=== PATIENT | male | born 1980 | race Caucasian/White ===

== ENCOUNTER 2021-08-15 15:58 | Emergency (ER) | payer BC, SELFPAY ==
--- NOTE | ~2021-08-15 | XR_ITS ---
XR shoulder RT min 2V 08/15/2021 16:15 Indication: Right shoulder pain Procedure: 4 views right shoulder Comparison: No prior studies for comparison. Findings: No fracture, subluxation or dislocation no significant soft tissue abnormality. Surrounding osseous structures and soft tissues are unremarkable. Impression: 1: No acute bone or joint abnormality. Reviewed, dictated and finalized at location A. SIFIER OPERATOR Impression: 1: No acute bone or joint abnormality.
--- NOTE | 2021-08-15 16:01 | ED.EXTPRO ---
HPI - Extremity Problem General Chief complaint: Extremity Injury, Upper Stated complaint: right shoulder pain Time Seen by Provider: 08/15/21 16:14 Source: patient and RN notes reviewed Mode of arrival: ambulatory Limitations: no limitations History of Present Illness HPI Narrative: 40-year-old male presents with concern for right shoulder pain. Reports this morning while he was playing hockey he was shoved up against the side rail. Reports mild ache at rest, worsening pain with range of motion. Reports using ice. He denies numbness or tingling in the right arm or hand. MD Complaint: extremity pain Related Data Home Medications Medication Instructions Recorded Confirmed No Home Medications 10/20/20 08/15/21 Allergies Allergy/AdvReac Type Severity Reaction Status Date / Time No Known Allergies Allergy Verified 08/15/21 16:21 Review of Systems Review of Systems: CONSTITUTIONAL: Denies malaise, chills, sweats, or fever. CARDIOVASCULAR: Denies chest pain, palpitations, or edema. RESPIRATORY: Denies cough or dyspnea. SKIN: Denies rash or itching, bruising, redness, swelling. MUSCULOSKELETAL: Reports right shoulder pain NEUROLOGIC: Denies numbness, weakness All systems reviewed & are unremarkable except as noted in HPI and below PMFSH Family History Family History (Updated 10/20/20 @ 11:23 by Cheryl [facility]) Mother Arthritis Social History Social History (Updated 10/20/20 @ 11:25 by Cheryl [facility]) Smoking status: Never smoker Alcohol intake: current Alcohol use details: 1-2 per day Comments At time of signature, agree with nursing past medical, surgical, social and family history. There is no relevant family history pertinent to the presenting complaint Exam Narrative: GENERAL: Well-appearing, well-nourished, and in no acute distress. HEAD: Normocephalic, atraumatic. EYES: PERRLA, conjunctivae clear NECK: Supple. CHEST: Speaks in full sentences. No respiratory distress. HEART: Regular rate and rhythm. Normal and equal peripheral pulses. EXTREMITIES: Right shoulder, arm have normal strength and sensation, normal range of motion. No edema or ecchymosis. 5/5 strength with shoulder abduction, abduction. Normal sensation with sensitivity to light touch and pain. Lateral joint tenderness. No open wounds, no skin tenting, no devitalized tissue or atrophy, no trophic changes, no obvious deformity, alignment normal, nearby joints and structures intact. Distal pulses palpable and equal bilaterally, skin warm, dry, pink. Capillary refill less than 3 seconds. SKIN: Warm, dry, no rash. NEURO: Alert and oriented x3. PSYCH: Normal mood and affect Course Course Emergency Course: Patient is aware of diagnosis, understands and agrees to treatment plan. Anticipatory guidance given. Patient agrees to follow-up as directed and is aware of reasons to seek care at the emergency department. Portions of this record may have been created with voice recognition software Vital Signs Vital signs: Reviewed. MDM - Extremity (Nontraumatic) Imaging Data My impression: Images reviewed, interpreted by radiologist, agree, see report. Radiologist's impression: XR shoulder RT min 2V 08/15/2021 16:15 Indication: Right shoulder pain Procedure: 4 views right shoulder Comparison: No prior studies for comparison. Findings: No fracture, subluxation or dislocation no significant soft tissue abnormality. Surrounding osseous structures and soft tissues are unremarkable. Impression: 1: No acute bone or joint abnormality. Critical Care Time Critical Care Time Critical Care Time: No Discharge Plan Discharge Clinical Impression: Injury of shoulder, right Qualifiers: Encounter type: initial encounter Qualified Code(s): S49.91XA - Unspecified injury of right shoulder and upper arm, initial encounter Patient Disposition: Home, Self-Care Condition: Stable Instructions: Shoulder Sprain (ED) Additional In
[2021-08-15 16:05] VITALS: BP 146/77; PULSE 73; RESP 16; TEMP 36.5; O2SAT 99
== END 2021-08-15 16:40 | disposition home or self-care (01) ==
PROVIDERS: Emergency Provider Nurse Practitioner
DX: S49.91XA Unspecified injury of right shoulder and upper arm, initial encounter (principal); W22.8XXA Striking against or struck by other objects, initial encounter; Y93.22 Activity, ice hockey
CPT/HCPCS: 73030; 99213; G0463

== ENCOUNTER 2021-11-03 13:53 | Outpatient (CLI) | payer BC, SELFPAY ==
--- NOTE | ~2021-11-03 | MR_ITS ---
EXAMINATION: MR shoulder RT wo con DATE: 11/03/2021 14:33 INDICATION: Right shoulder pain TECHNIQUE: Magnetic resonance imaging (MRI) of the right shoulder was performed without intravenous c ontrast. Sequences included axial PD-weighted FS FSE, coronal oblique PD-weighted FS FSE, coronal obl ique T2-weighted FS FSE, sagittal PD-weighted FS FSE, and sagittal T1-weighted SE. COMPARISON: Right shoulder radiographs dated 08/15/2021 FINDINGS: Coracoacromial arch: The acromion undersurface is minimally curved in morphology (type I-II). Arthrosis at the acromioclav icular joint with prominent marrow edema at the lateral head of the clavicle surrounding several eros ions with overhanging edges. A severe marrow edema and suggestion of an additional tiny erosion at th e acromial side of the joint space. Rotator cuff: Mild supraspinatus tendinopathy without discrete tear. The infraspinatus and teres minor tendons are normal. Mild subscapularis tendinopathy with small longitudinal split tear extending 1.5 cm medially from the lesser tuberosity footplate. Normal rotator cuff muscle bulk and signal. Biceps tendon, glenoid labrum and glenohumeral cartilage: Long head of the biceps tendon is normal. Glenoid labrum is normal. Glenohumeral cartilage is normal. Fluid: Physiologic amount of fluid in the glenohumeral joint and biceps tendon sheath. No loose osteochondr al bodies. No abnormal fluid signal in the subacromial/subdeltoid bursa to suggest bursitis. Bones: Aside from at the acromioclavicular joint there is normal marrow signal. No fracture or pathologic ma rrow replacing process. IMPRESSION: 1. 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 Given the history of trauma 3 months prior at which time the acromioclavicular joint. Norm al with no erosions would favor secondary development of posttraumatic distal clavicular osteolysis. Differential would include less likely an inflammatory or crystalline or septic arthritis in the appr opriate clinical setting. 2. Mild supraspinatus and subscapularis tendinopathy with small longitudinal split tear at the distal subscapularis tendon. Reviewed, dictated and finalized at location A. IAL FORCES SPECIALIST IMPRESSION: 1. 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 Given the history of trauma 3 months prior at which time the acromioclavicular joint. Normal with no erosions would favor sec ondary development of posttraumatic distal clavicular osteolysis. Differential would include less likely an inflammatory or crystalline or septic arthritis in the appropriate clinical setting. 2. Mild supraspinatus and subscapularis tendinopathy with small longitudinal sp lit tear at the distal subscapularis tendon.
== END 2021-11-03 13:54 | disposition home or self-care (01) ==
LOC: ANHIMG 13:56
PROVIDERS: PCP Internal Medicine; Visit Provider Clinical Nurse Specialist
DX: M25.511 Pain in right shoulder (principal); M19.011 Primary osteoarthritis, right shoulder; M75.81 Other shoulder lesions, right shoulder
CPT/HCPCS: 73221

== ENCOUNTER 2024-07-20 17:03 | Emergency (ER) | payer BC, SELFPAY ==
[2024-07-20 17:05] VITALS: BP 143/82; PULSE 75; RESP 16; TEMP 36.4; O2SAT 98
--- NOTE | 2024-07-20 17:36 | ED_ITS ---
HPI - Wound/Laceration General Chief Complaint: Wound/Laceration Stated Complaint: knee lac Time Seen by Provider: 07/20/24 17:34 History of Present Illness HPI narrative: Patient is a 43-year-old male who presents ER with laceration to left knee. He was hanging [place] lights when he slid down the ladder striking his knee on a wrong. Unknown last tetanus shot. No additional injury. Related Data Home Medications Medication Instructions Recorded Confirmed cetirizine 10 mg tablet (Zyrtec) 10 mg PO DAILY PRN 12/07/22 02/05/24 fluticasone propionate 50 1 spray intranasal BID 12/07/22 02/05/24 mcg/actuation nasal spray,suspension (Flonase Allergy Relief) Allergies Allergy/AdvReac Type Severity Reaction Status Date / Time No Known Allergies Allergy Verified 02/05/24 14:07 Review of Systems Constitutional: Constitutional: Reports no additional constitutional complaints Musculoskeletal: Musculoskeletal: Reports no additional musculoskeletal complaints Integumentary/Breasts: Skin/Breast: Reports system reviewed and no additional complaints, except as docu Comments: laceration to knee PMFSH Past Medical History Medical History (Updated 07/20/24 @ 18:08 by Manuel Lynn MD) Hypertriglyceridemia Family History Family History Mother Arthritis Social History Social History Smoking status: Never smoker Alcohol intake: current Drinks per week: 6 Substance use: never Lack of Transportation: No Lack of Food: Never True Current Housing: I Have Housing Concerned About Future Housing: No Difficulty Paying Gas/Electric Bills: No Difficulty Paying for Meds: No Currently Unemployed: No Education: Master's Degree or Higher Difficulty w/ Childcare or Family Care: No Occupation/Education: occupation Additional occupation/education comments: Sales at [employer] Gender identity (if verbalized by the patient): Male Exam Narrative: GENERAL: Well-appearing, well-nourished, and in no acute distress. HEAD: Normocephalic, atraumatic. EXTREMITIES: Normal range of motion. No edema. SKIN: Warm, dry, no rash. 3cm lac across left patella, superficial. NEURO: Alert and oriented x3. PSYCH: Normal mood and affect. Course Vital Signs Vital signs: Vital Signs Temperature 97.6 F 07/20/24 17:05 Pulse Rate 75 07/20/24 17:05 Respiratory Rate 16 07/20/24 17:05 Blood Pressure 143/82 H 07/20/24 17:05 Pulse Oximetry 98 07/20/24 17:05 Temperature 97.6 F 07/20/24 17:05 Pulse Rate 75 07/20/24 17:05 Respiratory Rate 16 07/20/24 17:05 Blood Pressure 143/82 H 07/20/24 17:05 Pulse Oximetry 98 07/20/24 17:05 Procedures Laceration Laceration 1: Date: 07/20/24 Time: 17:45 Site: other (knee) Side (If applicable): left Size (cm): 3 Description: linear Local Anesthetic: lidocaine 1% Amount of anesthesia used (mL): 3 Pre-repair: irrigated ====== Skin Level ====== Skin layer closed with: nylon Size (cm): 4-0 Number of sutures: 5 Technique: simple, interrupted ====== Subcutaneous Layer ====== ====== Muscle Layer ====== ====== Tendon Layer ====== Discharge Plan Discharge Clinical Impression: Laceration Patient Disposition: Home, Self-Care Condition: Stable Instructions: Care For Your Stitches (ED) Additional Instructions: Remove your stitches in 14 days. Return the ER if there is pus draining from the wound, you have fever, or you have additional concerns. Prescriptions: No Action cetirizine [Zyrtec] 10 mg tablet 10 mg PO DAILY PRN fluticasone propionate [Flonase Allergy Relief] 50 mcg/actuation spray,suspension 1 spray intranasal BID Rx Instructions: administer into each nostril Follow-up/Referrals: Murphy Clarke, [Primary Care Provider] - 2 Weeks
[2024-07-20] MEDS: TETANUS,DIPHTHERIA,AC PERTUSSIS ADULT (0.5 ML) BOOSTRIX IM (17:56)
== END 2024-07-20 18:13 | disposition home or self-care (01) ==
PROVIDERS: Emergency Provider Emergency Medicine; PCP Internal Medicine
DX: S81.012A Laceration without foreign body, left knee, initial encounter (principal); Z23 Encounter for immunization; E78.1 Pure hyperglyceridemia; W26.8XXA Contact with other sharp object(s), not elsewhere classified, initial encounter
CPT/HCPCS: 12002; 90471; 90715; 99282; J2004